=== PATIENT | male | born 1955 | race Caucasian/White ===

== ENCOUNTER → 2017-01-12 | Outpatient (CLI) | payer BC ==
[~2017-01-12] MED LIST: Gadobutrol 10 mMOL/10 ML SDV IVPUSH STA
--- NOTE | 2017-01-12 16:31 | MR ---
EXAMINATION: MRI of the left femur with and without contrast HISTORY: Swelling COMPARISON: None TECHNIQUE: Multiplanar and multisequence images obtained of the left femur before and following the administration of 9 mL of Gadavist. FINDINGS: There is a 4.4 x 11 cm mass noted within the vastus medialis musculature. This demonstrate s internal flow voids and extensive however heterogeneous enhancement. The mass is bright on T2 weig hted images and hypointense on T1-weighted images. There is a multiloculated T2 bright 2.4 cm lesion within the distal left femoral metaphysis demonstr ating enhancement. Degenerative changes are noted within the left knee most notable within the patellofemoral compartme nt. There is a tiny fat-containing left inguinal hernia. No bulky inguinal lymphadenopathy. IMPRESSION: 1. Indeterminate Heterogeneously enhancing vascular 4.4 x 11 cm mass within the left vastus medialis musculature. This is suspicious for a neoplastic process. 2. There is a 2.4 cm multiloculated nodule within the distal right femur, this most likely represent s an enchondroma, correlation with plain films may be beneficial.
== END ==
LOC: MW.MRI 11:10
PROVIDERS: ATTEND Family Medicine
DX: R22.42 Localized swelling, mass and lump, left lower limb (principal)
CPT/HCPCS: 73720; A9585

== ENCOUNTER → 2017-01-21 | Outpatient (CLI) | payer BC ==
--- NOTE | 2017-01-21 12:20 | US ---
EXAMINATION: Ultrasound guided left thigh mass biopsy HISTORY: Mass COMPARISON: MRI dated 01/13/2016 TECHNIQUE: The procedure, risks, and benefits were discussed with the patient. Informed consent was obtained. The area overlying the mass was sterilely prepped and draped. 1% lidocaine was administere d for local anesthesia. Using ultrasound guidance a 14-gauge trocar was advanced into the proximal a spect of the mass. A total of 6 16-gauge core biopsies were obtained. The patient tolerated the proc edure well. No immediate complications. IMPRESSION: Successful ultrasound-guided biopsy of the left thyroid mass.
== END | disposition home or self-care (01) ==
LOC: MW.US 10:41
PROVIDERS: ATTEND Family Medicine
DX: R22.42 Localized swelling, mass and lump, left lower limb (principal); R93.6 Abnormal findings on diagnostic imaging of limbs
CPT/HCPCS: 20206; 88307; 88323

== ENCOUNTER 2024-09-13 08:03 | Emergency (ER) | payer BC, MEDICARE ==
[2024-09-13] MEDS ORDERED: Sodium Chloride 0.9% 2.5 ML Syringe FLUSH PRN (08:19)
[2024-09-13 08:28] LABS: BASOPHILS ABSOLUTE AUTO 0.05 K/uL (0.00-0.20); BASOPHILS PERCENT AUTO 0.5 % (0.0-1.0); EOSINOPHILS ABSOLUTE AUTO 0.11 K/uL (0.00-0.45); EOSINOPHILS PERCENT AUTO 1.1 % (0.0-6.0); HEMATOCRIT 36.2 % (42.0-52.0); HEMOGLOBIN 12.2 g/dL (14.0-18.0); IMMATURE GRAN ABSOLUTE AUTO 0.03 K/uL (0.00-0.05); IMMATURE GRAN PERCENT AUTO 0.3 % (0.0-0.4); LYMPHOCYTES ABSOLUTE AUTO 0.74 K/uL (1.00-4.80); LYMPHOCYTES PERCENT AUTO 7.1 % (24.0-44.0); MEAN CORPUSCULAR HEMOGLOBIN 31.6 pg (28.0-32.0); MEAN CORPUSCULAR HGB CONC 33.7 g/dL (32.0-36.0); MEAN CORPUSCULAR VOLUME 93.8 fL (83.0-99.0); MEAN PLATELET VOLUME 8.8 fL (9.4-12.4); MONOCYTES ABSOLUTE AUTO 0.87 K/uL (0.00-0.80); MONOCYTES PERCENT AUTO 8.4 % (0.0-8.0); NEUTROPHILS ABSOLUTE AUTO 8.57 K/uL (1.80-7.70); NEUTROPHILS PERCENT AUTO 82.6 % (41.0-71.0); PLATELET COUNT,PLT 416 K/uL (150-400); RED BLOOD CELL COUNT 3.86 M/uL (4.52-5.90); WHITE BLOOD CELL COUNT,WBC 10.37 K/uL (3.9-11.3)
[2024-09-13] MEDS: Diltiazem 25 MG/5 ML SDV IVPUSH ONE (08:32)
[2024-09-13] MEDS: Sodium Chloride 0.9% 1,000 ML IV ONE (08:32)
[2024-09-13] MEDS: Diltiazem 100 MG in Sodium Chloride 0.9% 100 ML IV SCH (09:02)
[2024-09-13] MEDS: Sodium Chloride 0.9% 10 ML Syringe FLUSH PRN (09:03)
[2024-09-13 09:16] LABS: A/G RATIO 0.8 (0.9-1.6); ALBUMIN 3.2 g/dL (3.4-5.0); BILIRUBIN TOTAL 0.8 mg/dL (0.2-1.0); CALCIUM 9.3 mg/dL (8.5-10.1); CARBON DIOXIDE,CO2 23.8 mmol/L (21.0-32.0); CREATININE 1.6 mg/dL (0.8-1.3); EST CRCL DRUG DOSING (CG) 45.1 mL/min; INR 1.05 (0.86-1.11); MAGNESIUM 1.9 mg/dL (1.8-2.4); POTASSIUM,K 3.9 mmol/L (3.5-5.1); PTT,PARTIAL THROMBOPLSTIN TIME 26.5 SEC (23.9-30.7); TSH ULTRASENSITIVE 5.42 uIU/mL (0.36-3.74)
[2024-09-13] MEDS: Metoprolol Succinate 25 MG Tab.ER PO ONE (10:02)
[2024-09-13] MEDS: Iopamidol 755 MG/ML 500 ML Multipack Bottle IVPUSH STA (10:22)
[2024-09-13 13:07] VITALS: BP 129/89; PULSE 94
== END 2024-09-13 13:07 | disposition home or self-care (01) ==
LOC: MW.ED 08:03
DX: I48.91 Unspecified atrial fibrillation (principal); C34.92 Malignant neoplasm of unspecified part of left bronchus or lung; J90 Pleural effusion, not elsewhere classified; I10 Essential (primary) hypertension; Z88.8 Allergy status to other drugs, medicaments and biological substances; Z79.899 Other long term (current) drug therapy; Z75.8 Other problems related to medical facilities and other health care
CPT/HCPCS: 36415; 71045; 71275; 80053; 83735; 83880; 84443; 84484; 85025; 85379; 85610; 85730; 93005; 96365; 99285; A9270; J3490; J7030; Q9967; 93010; 99284

== ENCOUNTER 2024-09-27 12:53 | Emergency (ER) | payer MEDICARE ==
[2024-09-27] MEDS ORDERED: Sodium Chloride 0.9% 10 ML Syringe FLUSH PRN (13:20)
[2024-09-27] MEDS ORDERED: Sodium Chloride 0.9% 2.5 ML Syringe FLUSH PRN (13:20)
[2024-09-27 13:26] LABS: BASOPHILS ABSOLUTE AUTO 0.03 K/uL (0.00-0.20); BASOPHILS PERCENT AUTO 0.2 % (0.0-1.0); EOSINOPHILS ABSOLUTE AUTO 0.06 K/uL (0.00-0.45); EOSINOPHILS PERCENT AUTO 0.5 % (0.0-6.0); HEMATOCRIT 36.8 % (42.0-52.0); HEMOGLOBIN 12.1 g/dL (14.0-18.0); IMMATURE GRAN ABSOLUTE AUTO 0.07 K/uL (0.00-0.05); IMMATURE GRAN PERCENT AUTO 0.5 % (0.0-0.4); LYMPHOCYTES ABSOLUTE AUTO 0.74 K/uL (1.00-4.80); LYMPHOCYTES PERCENT AUTO 5.8 % (24.0-44.0); MEAN CORPUSCULAR HEMOGLOBIN 31.1 pg (28.0-32.0); MEAN CORPUSCULAR HGB CONC 32.9 g/dL (32.0-36.0); MEAN CORPUSCULAR VOLUME 94.6 fL (83.0-99.0); MEAN PLATELET VOLUME 9.2 fL (9.4-12.4); MONOCYTES ABSOLUTE AUTO 1.18 K/uL (0.00-0.80); MONOCYTES PERCENT AUTO 9.2 % (0.0-8.0); NEUTROPHILS ABSOLUTE AUTO 10.77 K/uL (1.80-7.70); NEUTROPHILS PERCENT AUTO 83.8 % (41.0-71.0); PLATELET COUNT,PLT 495 K/uL (150-400); RED BLOOD CELL COUNT 3.89 M/uL (4.52-5.90); WHITE BLOOD CELL COUNT,WBC 12.85 K/uL (3.9-11.3)
[2024-09-27 13:39] LABS: A/G RATIO 0.7 (0.9-1.6); CALCIUM 9.2 mg/dL (8.5-10.1); CARBON DIOXIDE,CO2 23.5 mmol/L (21.0-32.0); CREATININE 1.8 mg/dL (0.8-1.3); EST CRCL DRUG DOSING (CG) 40.09 mL/min; POTASSIUM,K 4.4 mmol/L (3.5-5.1); PROTEIN TOTAL,TP 7.2 g/dL (6.4-8.2)
[2024-09-27] MEDS: Sodium Chloride 0.9% 1,000 ML IV STA (14:13)
[2024-09-27] MEDS: Iopamidol 755 MG/ML 500 ML Multipack Bottle IVPUSH STA (14:47)
[2024-09-27] MEDS: Heparin Sodium/0.45% NaCl 25,000 UNITS/250 ML BAG IV SCH (17:58)
[2024-09-27] MEDS ORDERED: Furosemide 40 MG/4 ML VIAL IVPUSH ONE (23:06)
[2024-09-27] MEDS: cefTRIAXone 2 GM in Sodium Chloride 0.9% 50 ML IV ONE (23:21)
[2024-09-27 23:35] LABS: PH,VENOUS 7.37 (7.31-7.41)
[2024-09-27 23:36] LABS: BASE EXCESS VENOUS -4.5 (-2.0-3.0)
[2024-09-27 23:50] LABS: INR 1.16 (0.86-1.11)
[2024-09-27] MEDS: Azithromycin 500 MG in Sodium Chloride 0.9% 250 ML IV ONE (23:52)
[2024-09-28] MEDS: Furosemide 40 MG/4 ML VIAL IVPUSH ONE (01:15)
[2024-09-28] MEDS: Heparin Sodium 1,000 Units/ML MDV IV ONE (01:32)
[2024-09-28] MEDS: Heparin Sodium 5,000 Units/ML Vial IVPUSH STA (01:34)
[2024-09-28] MEDS: Doxycycline 100 MG in Sodium Chloride 0.9% 100 ML IV SCH (01:48)
[2024-09-28] MEDS ORDERED: Sodium Chloride 0.9% 500 ML IV SCH (03:15)
[2024-09-28] MEDS: Sodium Chloride 0.9% 1,000 ML IV ONE (03:20)
[2024-09-28 11:57] VITALS: BP 109/75; PULSE 115
== END 2024-09-28 11:56 ==
LOC: MW.ED 12:53
DX: I48.91 Unspecified atrial fibrillation (principal); J91.0 Malignant pleural effusion; Z75.8 Other problems related to medical facilities and other health care; I10 Essential (primary) hypertension; Z88.8 Allergy status to other drugs, medicaments and biological substances
CPT/HCPCS: 36415; 70450; 71045; 71275; 80053; 82803; 83605; 83880; 84484; 85025; 85610; 85730; 87040; 93005; 96365; 96366; 96368; 96375; 99285; J0456; J0696; J1644; J1940; J3490; J7030; J7050; Q9967; 93010

== ENCOUNTER 2024-11-04 14:27 | Inpatient (IN) | payer MEDICARE ==
[2024-11-04] MEDS: Sodium Chloride 0.9% 1,000 ML IV ONE (15:08)
[2024-11-04 16:00] LABS: HEMATOCRIT 31.1 % (42.0-52.0); HEMOGLOBIN 10.1 g/dL (14.0-18.0); MEAN CORPUSCULAR HEMOGLOBIN 30.7 pg (28.0-32.0); MEAN CORPUSCULAR HGB CONC 32.5 g/dL (32.0-36.0); MEAN CORPUSCULAR VOLUME 94.5 fL (83.0-99.0); MEAN PLATELET VOLUME 9.6 fL (9.4-12.4); PLATELET COUNT,PLT 206 K/uL (150-400); RED BLOOD CELL COUNT 3.29 M/uL (4.52-5.90); WHITE BLOOD CELL COUNT,WBC 29.56 K/uL (3.9-11.3)
[2024-11-04 16:15] LABS: INR 1.21 (0.86-1.11)
[2024-11-04 16:26] LABS: A/G RATIO 0.8 (0.9-1.6); ALBUMIN 2.4 g/dL (3.4-5.0); BILIRUBIN TOTAL 1.2 mg/dL (0.2-1.0); CALCIUM 7.3 mg/dL (8.5-10.1); CARBON DIOXIDE,CO2 23.3 mmol/L (21.0-32.0); CREATININE 2.9 mg/dL (0.8-1.3); EST CRCL DRUG DOSING (CG) 24.88 mL/min; POTASSIUM,K 5.2 mmol/L (3.5-5.1); PROTEIN TOTAL,TP 5.5 g/dL (6.4-8.2)
[2024-11-04 16:33] LABS: BAND ABSOLUTE MAN 2.96; BAND PERCENT MAN 10 %; ELLIPTOCYTES 2+ MODERATE; LYMPHOCYTES PERCENT MAN 1 % (24-44); METAMYELOCYTE PERCENT MAN 1 %; MONOCYTES ABSOLUTE MAN 0.59 K/uL (0.00-0.80); MONOCYTES PERCENT MAN 2 % (0-8); POIKILOCYTOSIS 2+ MODERATE; SEG NEUTROPHILS ABSOLUTE MAN 25.72 K/uL (1.80-7.70); SEG NEUTROPHILS PERCENT MAN 87 % (41-71)
[2024-11-04 16:34] LABS: HELMET CELLS FEW
[2024-11-04 16:35] LABS: PLATELET COUNT ESTIMATE ADEQUATE; TOXIC GRANULATION 1+ SLIGHT
[2024-11-04 17:08] LABS: PH,VENOUS 7.35 (7.31-7.41)
[2024-11-04] MEDS: Heparin Sodium/0.45% NaCl 25,000 UNITS/250 ML BAG IV SCH ×2 (17:34→20:00)
[2024-11-04] MEDS: Sodium Chloride 0.9% 10 ML Syringe FLUSH PRN (17:36)
[2024-11-04] MEDS: Sodium Chloride 0.9% 2.5 ML Syringe FLUSH PRN (17:36)
[2024-11-04] MEDS: Heparin Sodium 5,000 Units/ML Vial IV ONE (18:41)
[2024-11-04] MEDS ORDERED: Cefepime 2 GM in Sodium Chloride 0.9% 50 ML IV SCH (19:15)
[2024-11-04] MEDS: Metoprolol Tartrate 25 MG Tab PO SCH (19:36)
[2024-11-04] MEDS: Cefepime 1 GM Vial IM ONE (19:39)
[2024-11-04] MEDS: Sodium Chloride 0.9% 1,000 ML IV STA (19:59)
[2024-11-04] MEDS: Cefepime 1 GM in Sodium Chloride 0.9% 50 ML IV SCH (19:59)
[2024-11-04] MEDS: Cefepime 1 GM in Sodium Chloride 0.9% 50 ML IV ONE (20:00)
[2024-11-04] MEDS: VANCOmycin 1.75 GM/350 ML 1.75 GM in Premix Bag 1 BAG IV ONE (20:31)
[2024-11-04] MEDS: LORazepam 2 MG/ML SDV IVPUSH PRN (22:23)
[2024-11-04] MEDS: Sodium Chloride 0.9% 1,000 ML IV SCH (22:29)
[2024-11-05 05:47] LABS: HEMATOCRIT 30.8 % (42.0-52.0); MEAN CORPUSCULAR HEMOGLOBIN 30.6 pg (28.0-32.0); MEAN CORPUSCULAR HGB CONC 32.5 g/dL (32.0-36.0); MEAN CORPUSCULAR VOLUME 94.2 fL (83.0-99.0); MEAN PLATELET VOLUME 9.7 fL (9.4-12.4); PLATELET COUNT,PLT 170 K/uL (150-400); RED BLOOD CELL COUNT 3.27 M/uL (4.52-5.90); WHITE BLOOD CELL COUNT,WBC 24.12 K/uL (3.9-11.3)
[2024-11-05 06:08] LABS: A/G RATIO 0.7 (0.9-1.6); ALBUMIN 2.2 g/dL (3.4-5.0); BILIRUBIN TOTAL 1.1 mg/dL (0.2-1.0); CALCIUM 6.9 mg/dL (8.5-10.1); CARBON DIOXIDE,CO2 19.9 mmol/L (21.0-32.0); CREATININE 3.2 mg/dL (0.8-1.3); EST CRCL DRUG DOSING (CG) 22.55 mL/min; POTASSIUM,K 5.5 mmol/L (3.5-5.1); PROTEIN TOTAL,TP 5.2 g/dL (6.4-8.2)
[2024-11-05 06:48] LABS: BAND ABSOLUTE MAN 1.93; BAND PERCENT MAN 8 %; LYMPHOCYTES ABSOLUTE MAN 0.48 K/uL (1.00-4.80); LYMPHOCYTES PERCENT MAN 2 % (24-44); MONOCYTES ABSOLUTE MAN 0.48 K/uL (0.00-0.80); MONOCYTES PERCENT MAN 2 % (0-8); MYELOCYTE ABSOLUTE MAN 1.69; MYELOCYTE PERCENT MAN 7 %; SEG NEUTROPHILS ABSOLUTE MAN 19.54 K/uL (1.80-7.70); SEG NEUTROPHILS PERCENT MAN 81 % (41-71)
[2024-11-05] MEDS ORDERED: Furosemide 40 MG in Sodium Chloride 0.9% 50 ML IV ONE (11:10)
[2024-11-05] MEDS: Furosemide 40 MG/4 ML VIAL IVPUSH ONE (11:15)
[2024-11-05] MEDS ORDERED: Sodium Chloride 0.9% 1,000 ML IV SCH (13:00)
[2024-11-05] MEDS: Metolazone 5 MG Tab PO ONE (13:22)
[2024-11-05] MEDS: Sodium Chloride 0.9% 500 ML IV SCH (13:27)
[2024-11-05] MEDS: Tamsulosin 0.4 MG Cap.ER PO SCH (17:33)
[2024-11-05] MEDS: VANCOmycin 750 MG in Sodium Chloride 0.9% 250 ML IV SCH (20:14)
[2024-11-06 05:45] LABS: HEMATOCRIT 31.7 % (42.0-52.0); HEMOGLOBIN 10.1 g/dL (14.0-18.0); MEAN CORPUSCULAR HEMOGLOBIN 30.1 pg (28.0-32.0); MEAN CORPUSCULAR HGB CONC 31.9 g/dL (32.0-36.0); MEAN CORPUSCULAR VOLUME 94.6 fL (83.0-99.0); MEAN PLATELET VOLUME 9.9 fL (9.4-12.4); PLATELET COUNT,PLT 139 K/uL (150-400); RED BLOOD CELL COUNT 3.35 M/uL (4.52-5.90)
[2024-11-06 06:13] LABS: MYELOCYTE ABSOLUTE MAN 0.78; MYELOCYTE PERCENT MAN 4 %; SEG NEUTROPHILS ABSOLUTE MAN 18.72 K/uL (1.80-7.70); SEG NEUTROPHILS PERCENT MAN 96 % (41-71)
[2024-11-06 06:18] LABS: A/G RATIO 0.7 (0.9-1.6); ALBUMIN 2.3 g/dL (3.4-5.0); BILIRUBIN TOTAL 0.8 mg/dL (0.2-1.0); CALCIUM 7.1 mg/dL (8.5-10.1); CARBON DIOXIDE,CO2 18.8 mmol/L (21.0-32.0); CREATININE 3.7 mg/dL (0.8-1.3); EST CRCL DRUG DOSING (CG) 19.5 mL/min; MAGNESIUM 2.2 mg/dL (1.8-2.4); POTASSIUM,K 5.9 mmol/L (3.5-5.1); PROTEIN TOTAL,TP 5.5 g/dL (6.4-8.2)
[2024-11-06] MEDS: oxyCODONE 5 MG Tab PO PRN (09:58)
[2024-11-06] MEDS ORDERED: Glucagon,Human Recombinant 1 MG Vial IM PRN (10:53)
[2024-11-06] MEDS ORDERED: 50% Dextrose in Water 50 ML Syringe IVPUSH PRN (10:53)
[2024-11-06] MEDS ORDERED: Albumin 25% 12.5 GM/50 ML Bag IV ONE (11:01)
[2024-11-06] MEDS: Insulin Aspart 100 Units/ML 3 ML Pen SUBCUT STA (11:16)
[2024-11-06] MEDS: Albumin 25% 12.5 GM in Premix Bag 1 BAG IV SCH ×2 (11:42→18:33)
[2024-11-06] MEDS ORDERED: Naloxone 0.4 MG/ML SDV IVPUSH PRN (11:48)
[2024-11-06] MEDS: Morphine 2 MG/ML SYRINGE IVPUSH PRN (12:39)
[2024-11-06 14:36] LABS: HEMATOCRIT 30.7 % (42.0-52.0); HEMOGLOBIN 10.2 g/dL (14.0-18.0); MEAN CORPUSCULAR HEMOGLOBIN 31.1 pg (28.0-32.0); MEAN CORPUSCULAR HGB CONC 33.2 g/dL (32.0-36.0); MEAN CORPUSCULAR VOLUME 93.6 fL (83.0-99.0); MEAN PLATELET VOLUME 10.2 fL (9.4-12.4); PLATELET COUNT,PLT 132 K/uL (150-400); RED BLOOD CELL COUNT 3.28 M/uL (4.52-5.90); WHITE BLOOD CELL COUNT,WBC 22.99 K/uL (3.9-11.3)
[2024-11-06 14:59] LABS: A/G RATIO 0.8 (0.9-1.6); ALBUMIN 2.4 g/dL (3.4-5.0); BILIRUBIN TOTAL 0.8 mg/dL (0.2-1.0); CALCIUM 6.9 mg/dL (8.5-10.1); CARBON DIOXIDE,CO2 17.6 mmol/L (21.0-32.0); CREATININE 3.6 mg/dL (0.8-1.3); EST CRCL DRUG DOSING (CG) 20.05 mL/min; MAGNESIUM 2.2 mg/dL (1.8-2.4); POTASSIUM,K 5.8 mmol/L (3.5-5.1); PROTEIN TOTAL,TP 5.6 g/dL (6.4-8.2)
[2024-11-06 15:05] LABS: BAND ABSOLUTE MAN 1.84; BAND PERCENT MAN 8 %; MONOCYTES ABSOLUTE MAN 0.23 K/uL (0.00-0.80); MONOCYTES PERCENT MAN 1 % (0-8); SEG NEUTROPHILS ABSOLUTE MAN 20.46 K/uL (1.80-7.70); SEG NEUTROPHILS PERCENT MAN 89 % (41-71)
[2024-11-06 15:06] LABS: METAMYELOCYTE ABSOLUTE MAN 0.23; METAMYELOCYTE PERCENT MAN 1 %; MYELOCYTE ABSOLUTE MAN 0.23; MYELOCYTE PERCENT MAN 1 %
[2024-11-06] MEDS: Tamsulosin 0.4 MG Cap.ER PO SCH (17:03)
[2024-11-06] MEDS: Sodium Chloride 0.9% 1,000 ML IV SCH (18:25)
[2024-11-06 20:01] VITALS: PULSE 119
[2024-11-06] MEDS: Calcium Gluconate 10% 1 GM/10 ML SDV IV ONE (20:57)
[2024-11-06 21:02] LABS: BORDETELLA PARAPERT IS1001 Not Detected (Not Detected)
[2024-11-07 06:18] LABS: HEMATOCRIT 29.4 % (42.0-52.0); HEMOGLOBIN 9.6 g/dL (14.0-18.0); MEAN CORPUSCULAR HEMOGLOBIN 30.7 pg (28.0-32.0); MEAN CORPUSCULAR HGB CONC 32.7 g/dL (32.0-36.0); MEAN CORPUSCULAR VOLUME 93.9 fL (83.0-99.0); MEAN PLATELET VOLUME 10.3 fL (9.4-12.4); PLATELET COUNT,PLT 116 K/uL (150-400); RED BLOOD CELL COUNT 3.13 M/uL (4.52-5.90); WHITE BLOOD CELL COUNT,WBC 15.89 K/uL (3.9-11.3)
[2024-11-07] MEDS ORDERED: oxyCODONE 5 MG Tab PO PRN (06:45)
[2024-11-07 06:46] LABS: A/G RATIO 0.9 (0.9-1.6); ALBUMIN 2.7 g/dL (3.4-5.0); BILIRUBIN TOTAL 0.8 mg/dL (0.2-1.0); CALCIUM 7.2 mg/dL (8.5-10.1); CARBON DIOXIDE,CO2 17.9 mmol/L (21.0-32.0); CREATININE 3.6 mg/dL (0.8-1.3); EST CRCL DRUG DOSING (CG) 20.05 mL/min; MAGNESIUM 2.2 mg/dL (1.8-2.4); POTASSIUM,K 5.8 mmol/L (3.5-5.1); PROTEIN TOTAL,TP 5.6 g/dL (6.4-8.2)
[2024-11-07 07:39] LABS: BAND ABSOLUTE MAN 1.27; BAND PERCENT MAN 8 %; LYMPHOCYTES ABSOLUTE MAN 0.48 K/uL (1.00-4.80); LYMPHOCYTES PERCENT MAN 3 % (24-44); METAMYELOCYTE ABSOLUTE MAN 0.16; METAMYELOCYTE PERCENT MAN 1 %; MONOCYTES ABSOLUTE MAN 0.32 K/uL (0.00-0.80); MONOCYTES PERCENT MAN 2 % (0-8); SEG NEUTROPHILS ABSOLUTE MAN 13.67 K/uL (1.80-7.70); SEG NEUTROPHILS PERCENT MAN 86 % (41-71)
[2024-11-07 07:41] LABS: ELLIPTOCYTES 2+ MODERATE; POIKILOCYTOSIS 2+ MODERATE
[2024-11-07 11:49] VITALS: BP 114/68
== END 2024-11-07 13:20 | disposition home or self-care (01) | DRG 872 ==
LOC: MW.ED 14:27 → MW.ICU 18:09
PROVIDERS: ADMIT Family Medicine; ATTEND Family Medicine
DX: A41.9 Sepsis, unspecified organism (principal); C34.90 Malignant neoplasm of unspecified part of unspecified bronchus or lung; R53.83 Other fatigue; R94.5 Abnormal results of liver function studies; J91.0 Malignant pleural effusion; Z75.8 Other problems related to medical facilities and other health care; I31.39 Other pericardial effusion (noninflammatory); Z88.6 Allergy status to analgesic agent; N17.9 Acute kidney failure, unspecified; I48.92 Unspecified atrial flutter; I95.9 Hypotension, unspecified; I10 Essential (primary) hypertension; N40.0 Benign prostatic hyperplasia without lower urinary tract symptoms; R09.02 Hypoxemia; Z66 Do not resuscitate; D70.9 Neutropenia, unspecified; R50.81 Fever presenting with conditions classified elsewhere; I48.0 Paroxysmal atrial fibrillation; R79.89 Other specified abnormal findings of blood chemistry; Z88.8 Allergy status to other drugs, medicaments and biological substances; Z79.899 Other long term (current) drug therapy; Z97.8 Presence of other specified devices
CPT/HCPCS: 36415; 71045; 76705; 80053; 82803; 83605; 84484; 85025; 85610; 85730; 86850; 86900; 86901; 87428; 93005; J1644; J7030; 71250; 71250-26; 80202; 83735; 87486; 87581; 87633; A9270-GY; J0612; J0692; J1815-GY; J1940; J2060; J2270; J3370; J3372; J3490; J7040; J7050; P9047